=== PATIENT | female | born 1965 | race Caucasian/White ===

== ENCOUNTER → 2017-11-16 | Outpatient (CLI) | payer OTHER | END | disposition home or self-care (01) | LOC: CFH 11:52 | PROVIDERS: ATTEND Obstetrics & Gynecology | DX: N60.02 Solitary cyst of left breast (principal) | CPT/HCPCS: 77066 ==

== ENCOUNTER 2019-10-09 11:53 | Outpatient (CLI) | payer OTHER ==
[2019-10-09] MEDS ORDERED: LIDOCAINE 1%-EPI 1:100K, 20ML ONE (14:56)
[2019-10-09] MEDS ORDERED: SODIUM BICARBONATE 4.2%, 5ML ONE (14:56)
[2019-10-09] MEDS ORDERED: LIDOCAINE 1%, 20ML ONE (14:56)
== END 2019-10-09 23:59 | disposition home or self-care (01) ==
LOC: CFH 11:53
PROVIDERS: ATTEND Obstetrics & Gynecology
DX: N60.02 Solitary cyst of left breast (principal)
CPT/HCPCS: 19000; 19001; 76642; 76942; 77066; G0279; J3490